=== PATIENT | female | born 1980 | race Caucasian/White ===

== ENCOUNTER 2023-05-03 21:50 | Emergency (ER) | payer OTHER ==
[~2023-05-03] VITALS: Ht 149.9 cm; Wt 65.8 kg
[2023-05-03 22:01] VITALS: BP 150/90; PULSE 90; RESP 16; TEMP 98.2; O2SAT 99
[2023-05-03 23:41] VITALS: BP 150/90; PULSE 90; RESP 16; TEMP 98.2; O2SAT 99
== END 2023-05-03 23:25 | disposition left against medical advice (07) ==
LOC: MED 21:50
DX: R06.02 Shortness of breath (principal); Z79.899 Other long term (current) drug therapy
CPT/HCPCS: 99281